=== PATIENT | male | born 1975 | race Caucasian/White ===

== ENCOUNTER 2018-06-03 13:07 | Emergency (ER) ==
[2018-06-03 13:12] VITALS: BP 113/76; TEMP 100.9; BMI 34.8
[2018-06-03] MEDS ORDERED: LIDOCAINE HCL 1% SDV IM STA (16:18)
[2018-06-03] MEDS ORDERED: ROCEPHIN IM STA (16:18)
--- NOTE | 2018-06-03 16:20 | ED.PDOC ---
General ED Provider: Dr. MARIA ISABEL DENNIS Chief Complaint: Shortness of Air Stated Complaint: flu like symptoms Time Seen by Physician: 13:13 (seen with nurse at all times left flank pain) Information Source: Patient Exam Limitations: No limitations Nursing and Triage Documentation Reviewed and Agree: Yes Does patient meet sepsis criteria?: No System Inflammatory Response Syndrome: Not Applicable Sepsis Protocol: For patient's 13 years and over: Temp is 96.8 and below OR 101 and greater Pulse >90 BPM Resp >20/minute Acutely Altered Mental Status Are patient's symptoms suggestive of a new infection, such as: -Pneumonia -Skin, Soft Tissue -Endocarditis -UTI -Bone, Joint Infection -Implantable Device -Acute Abdominal Infection -Wound Infection -Meningitis -Blood Stream Catheter Infection -Unknown Review of Systems - Review Of Systems Constitutional: Reports: Malaise, Loss of appetite Eyes: Reports: No symptoms Ears, Nose, Mouth, Throat: Reports: No symptoms Respiratory: Reports: Cough Cardiac: Reports: No symptoms GI: Reports: No symptoms : Reports: No symptoms Musculoskeletal: Reports: No symptoms Skin: Reports: No symptoms Neurological: Reports: No symptoms Endocrine: Reports: No symptoms Hematologic/Lymphatic: Reports: No symptoms All Other Systems: Reviewed and Negative Past Medical History - Past Medical History Previously Healthy: Yes Endocrine: Reports: None Cardiovascular: Reports: None Respiratory: Reports: None Hematological: Reports: None Gastrointestinal: Reports: None Genitourinary: Reports: None Neuro/Psych: Reports: None Musculoskeletal: Reports: Other (R.A ON STEROID) Cancer: Reports: None - Surgical History General Surgical History: Reports: None - Family History Family History: Reports: None - Social History Smoking Status: Current every day smoker Hx Substance Use: No Alcohol Screening: None - Immunizations Tetanus Shot up to Date: Yes Physical Exam - Physical Exam Appearance: Well-appearing, No pain distress, Well-nourished Eyes: TIMOTHY, EOMI, Conjunctiva clear ENT: Ears normal, Nose normal, Oropharynx normal Respiratory: Airway patent, Breath sounds clear, Breath sounds equal, Respirations nonlabored Cardiovascular: RRR, Pulses normal, No rub, No murmur GI/: Soft, Nontender, No masses, Bowel sounds normal, No Organomegaly Musculoskeletal: Normal strength, ROM intact, No edema, No calf tenderness Skin: Warm, Dry, Normal color Neurological: Sensation intact, Motor intact, Reflexes intact, Cranial nerves intact, Alert, Oriented Psychiatric: Affect appropriate, Mood appropriate Re-Evaluation - Re-Evaluation Time of Re-Evaluation: 15:00 Status: Improved Vital Signs Stable: Yes Pain Level: 0 Appearance: NAD Lungs: Clear Skin: Warm and Dry Neuro: Alert and Oriented X3 CV: RRR - Re-Evaluation Time of Re-Evaluation: 16:20 Status: Improved Vital Signs Stable: Yes Pain Level: 0 Appearance: NAD Skin: Warm and Dry Neuro: Alert and Oriented X3 CV: RRR Critical Care Note - Critical Care Note Total Time (mins): 0 Course - Course Hematology/Chemistry: 06/03/18 13:48 06/03/18 13:48 Orders, Labs, Meds: Lab Review 06/03/18 06/03/18 06/03/18 13:30 13:39 13:48 WBC 25.06 H RBC 5.36 Hgb 15.7 Hct 46.3 MCV 86.4 MCH 29.3 MCHC 33.9 RDW Coeff of [place] 12.5 Plt Count 183 Immature Gran % (Auto) 0.7 Neut % (Auto) 90.9 Lymph % (Auto) 3.6 L Towns % (Auto) 4.5 Eos % (Auto) 0.0 Baso % (Auto) 0.3 Immature Gran # (Auto) 0.2 Neut # (Auto) 22.8 H Lymph # (Auto) 0.9 Towns # (Auto) 1.1 Eos # (Auto) 0.0 Baso # (Auto) 0.1 Puncture Site Rrad O2 Saturation 95.0 ABG pH 7.430 ABG pCO2 28.5 L ABG pO2 70.0 L ABG HCO3 19 L ABG Total CO2 20 L ABG Base Excess -5 L Jourdan Test + FiO2 % 21.0 Sodium Potassium Chloride Carbon Dioxide Anion Gap BUN Creatinine Estimated GFR (MDRD) BUN/Creatinine Ratio Glucose Lactic Acid Calcium Total Bilirubin AST ALT Alkaline Phosphatase Total Protein Albumin Globulin Albumin/Globulin Ratio Procalcitonin Urine Color Urine Clarity Urine pH Ur Specific [place] Urine Protein Urine Glucose (UA) Urine Ketones Urine Blood Urine Nitrite Urine Bilirubin Urine Urobilinogen Ur Leukocyte Esterase Urine Microscopic RBC Urine Microscopic WBC Ur Squamous Epith Cells Uric Acid Crystals Urine Bacteria Urine Mucus Influ A Molecular Assay Negative by naat Influ B Molecular Assay Negative by naat 06/03/18 06/03/18 06/03/18 13:48 15:00 15:00 WBC RBC Hgb Hct MCV MCH MCHC RDW Coeff of [place] Plt Count Immature Gran % (Auto) Neut % (Auto) Lymph % (Auto) Towns % (Auto) Eos % (Auto) Baso % (Auto) Immature Gran # (Auto) Neut # (Auto) Lymph # (Auto) Towns # (Auto) Eos # (Auto) Baso # (Auto) Puncture Site O2 Saturation ABG pH ABG pCO2 ABG pO2 ABG HCO3 ABG Total CO2 ABG Base Excess Jouradn Test FiO2 % Sodium 128.3 L Potassium 4.02 Chloride 96.1 L Carbon Dioxide 22.2 Anion Gap 14.02 BUN 12.7 Creatinine 0.90 Estimated GFR (MDRD) 91.00 BUN/Creatinine Ratio 14.11 Glucose 120.1 H Lactic Acid 0.99 Calcium 9.10 Total Bilirubin 1.59 H AST 16.9 L ALT 25.8 Alkaline Phosphatase 100.9 Total Protein 7.35 Albumin 4.16 Globulin 3.19 Albumin/Globulin Ratio 1.30 Procalcitonin 0.69 Urine Color Urine Clarity Urine pH Ur Specific [place] Urine Protein Urine Glucose (UA) Urine Ketones Urine Blood Urine Nitrite Urine Bilirubin Urine Urobilinogen Ur Leukocyte Esterase Urine Microscopic RBC Urine Microscopic WBC Ur Squamous Epith Cells Uric Acid Crystals Urine Bacteria Urine Mucus Influ A Molecular Assay Influ B Molecular Assay 06/03/18 15:40 WBC RBC Hgb Hct MCV MCH MCHC RDW Coeff of [place] Plt Count Immature Gran % (Auto) Neut % (Auto) Lymph % (Auto) Towns % (Auto) Eos % (Auto) Baso % (Auto) Immature Gran # (Auto) Neut # (Auto) Lymph # (Auto) Towns # (Auto) Eos # (Auto) Baso # (Auto) Puncture Site O2 Saturation ABG pH ABG pCO2 ABG pO2 ABG HCO3 ABG Total CO2 ABG Base Excess Jourdan Test FiO2 % Sodium Potassium Chloride Carbon Dioxide Anion Gap BUN Creatinine Estimated GFR (MDRD) BUN/Creatinine Ratio Glucose Lactic Acid Calcium Total Bilirubin AST ALT Alkaline Phosphatase Total Protein Albumin Globulin Albumin/Globulin Ratio Procalcitonin Urine Color [place] Urine Clarity Clear Urine pH 5.5 Ur Specific [place] 1.025 Urine Protein 2+ Urine Glucose (UA) Negative Urine Ketones Negative Urine Blood Negative Urine Nitrite Negative Urine Bilirubin 1+ Urine Urobilinogen 2.0 Ur Leukocyte Esterase Negative Urine Microscopic RBC 20-30 Urine Microscopic WBC 5-10 Ur Squamous Epith Cells 2-5 Uric Acid Crystals Trace Urine Bacteria 1+ Urine Mucus 3+ Influ A Molecular Assay Influ B Molecular Assay Orders Category Date Time Status ABG DRAW REQUEST Stat CARDIO 06/03/18 13:39 Completed NPO REMINDER: IMAGING ONCE CARE 06/03/18 15:02 Active ABG Stat LAB 06/03/18 13:39 Completed BLOOD CULTURE (ED ONLY) Stat LAB 06/03/18 15:00 Received CBC W/ AUTO DIFF Stat LAB 06/03/18 13:48 Completed COMPREHENSIVE METABOLIC PANEL Stat LAB 06/03/18 13:48 Completed FLU A/B MOLECULAR Stat LAB 06/03/18 13:30 Completed LACTIC ACID Stat LAB 06/03/18 15:00 Completed MOLECULAR GROUP A STREP Stat LAB 06/03/18 13:30 Completed PROCALCITONIN Stat LAB 06/03/18 15:00 Completed URINALYSIS C & S IF INDICATED Stat LAB 06/03/18 15:40 Completed URINE CULTURE Stat LAB 06/03/18 15:40 Received Ceftriaxone Sodium [Rocephin] MEDS 06/03/18 16:18 Stat 1 gm IM ONCE STA Lidocaine HCl/Pf [Lidocaine HCl 1% Sdv] MEDS 06/03/18 16:18 Stat 2.1 ml IM ONCE STA CT ABD/PEL WO RENAL STONE PROT Stat RADS 06/03/18 14:[address] CHEST PE PROTOCOL Stat RADS 06/03/18 15:02 Ordered Medications Generic Name Dose Route Start Last Admin Trade Name Freq PRN Reason Stop Dose Admin Ceftriaxone Sodium 1 gm 06/03/18 16:18 Rocephin IM 06/03/18 16:19 ONCE STA Lidocaine HCl 2.1 ml 06/03/18 16:18 Lidocaine Hcl 1% Sdv IM 06/03/18 16:19 ONCE STA Vital Signs: Temp Pulse Resp BP Pulse Ox 06/03/18 13:07 100.9 F H 102 H 22 113/76 95 Departure - Departure Time of Disposition: 17:00 Disposition: HOME SELF-CARE Discharge Problem: Viral syndrome UTI (urinary tract infection) Qualifiers: Urinary tract infection type: site unspecified Instructions: Urinary Tract Infection in Men (ED) Condition: Good Pt referred to PMD for follow-up: Yes IPMP verified?: No Additional Instructions: Please call your Family Physician as soon as possible to schedule a follow-up appointment. Allergies/Adverse Reactions: Allergies No Known Allergies Allergy (Unverified 06/03/18 13:11) Home Medications: Ambulatory Orders Prednisone 10 mg PO PRN PRN 06/03/18 Tofacitinib Citrate [Xeljanz] 10 mg PO PRN PRN 06/03/18 Disposition Discussed With: Patient, Family
--- NOTE | 2018-06-03 16:44 | CT ---
Exam: CTA chest, PE protocol with intravenous contrast and 3-D MIP reformatted images. Comparison: None available. Reason for exam: Short of air. FINDINGS: Patchy airspace consolidations are seen in the posterior right upper, right middle, and valeria th lower lobes with air bronchograms. No main, proximal, or segmental pulmonary arterial filling def ect is seen. The heart is not enlarged. The aorta appears normal in course and caliber. The thyroid appears grossly unremarkable. No pneumothorax or pleural effusion. Impression: 1. No main, proximal, or segmental pulmonary arterial filling defect 2. Patchy airspace consolidations in the right posterior upper, hilar, right middle lobe, and both l ower lobes consistent with multi focal pneumonia. Cannot rule out a septic emboli or other less comm on etiologies. Follow-up imaging is recommended.
--- NOTE | 2018-06-03 16:50 | CT ---
EXAM: CT abdomen pelvis without contrast HISTORY: Flank pain COMPARISON: None TECHNIQUE: CT abdomen pelvis performed without intravenous contrast. Coronal and sagittal reformatt ed images obtained. FINDINGS: Bibasilar consolidation and ground-glass infiltrates, greatest in the right lower lobe. N o free air. No acute abnormalities of the bones. Degenerative change in the spine. Heart normal in size. Evaluation organ parenchyma limited without contrast. Liver mildly enlarged. Gallbladder ap pears normal. Pancreas appears normal. Spleen is mildly enlarged. Adrenals appear normal. Aorta n ormal in caliber. Mild atherosclerotic ossification. Small fat-containing right inguinal hernia. S mall fat-containing periumbilical hernia. No lymphadenopathy or ascites. Small hiatal hernia. No d ilated loops small bowel. Normal appendix probably visualized on image 100. Colon unremarkable. No hydronephrosis or nephrolithiasis. Mild nonspecific bilateral perinephric stranding. Small left re nal cyst measuring 0.7 cm. No calculi visualized in the normal course of the ureters. IMPRESSION: 1. No hydronephrosis or nephrolithiasis. 2. Bibasilar consolidation and ground-glass opacity, greatest in the right lower lobe, most likely r epresenting pneumonia. 3. Mild nonspecific bilateral perinephric stranding. 4. Hepatosplenomegaly. 5. Small hiatal hernia
== END 2018-06-03 16:54 | disposition home or self-care (01) ==
LOC: ED 13:07
DX: N39.0 Urinary tract infection, site not specified (principal); B34.9 Viral infection, unspecified; R06.02 Shortness of breath; F17.210 Nicotine dependence, cigarettes, uncomplicated
CPT/HCPCS: 36415; 74176; 80053; 81001; 82803; 83605; 84145; 85025; 87040; 87086; 87502; 87651; 96372; 99283